=== PATIENT | female | born 1985 ===

== ENCOUNTER → 2017-07-24 19:08 | Outpatient (CLI) | payer SELFPAY ==
[2017-07-24 19:28] LABS: UDS - AMPHET NEGATIVE QUAL (NEGATIVE); UDS - BARB NEGATIVE QUAL (NEGATIVE); UDS - BENZO NEGATIVE QUAL (NEGATIVE); UDS - COCAINE NEGATIVE QUAL (NEGATIVE); UDS - OPIATE POSITIVE QUAL (NEGATIVE); UDS - PCP NEGATIVE QUAL (NEGATIVE); UDS - THC NEGATIVE QUAL (NEGATIVE)
== END | disposition home or self-care (01) ==
LOC: D.LDO 19:08
PROVIDERS: Obstetrics & Gynecology
DX: O26.893 Other specified pregnancy related conditions, third trimester (principal); R10.9 Unspecified abdominal pain; M54.5 Low back pain; M54.2 Cervicalgia; R11.0 Nausea